=== PATIENT | female | born 1975 | race American Indian/Alaskan Native ===

== ENCOUNTER 2020-11-26 10:30 | Emergency (ER) | payer SELFPAY ==
[2020-11-26 10:56] VITALS: BP 176/117
--- NOTE | 2020-11-26 12:15 | Emergency Department Report ---
Blank Doc - Documentation Documentation: Attempted to call patient for MSE at 1118AM, 1140AM, 1214PM with no answer it appears patient has eloped from the emergency department
== END 2020-11-26 10:50 | disposition left against medical advice (07) ==
LOC: ED 10:30
DX: Z00.8 Encounter for other general examination (principal); Z53.21 Procedure and treatment not carried out due to patient leaving prior to being seen by health care provider